=== PATIENT | female | born 1980 | race African-American/Black ===

== ENCOUNTER 2017-07-22 12:31 | Emergency (ER) | payer OTHER ==
[~2017-07-22] VITALS: Ht 167.6 cm; Wt 78.4 kg
[~2017-07-22 12:31] MED LIST: NORCO 5/3251 TABLET PO; PEN-VEE K,VEET500 MG PO
[2017-07-22 14:43] LABS: HEMATOCRIT 34.6 % (36.0-46.0); MCH 30.1 PG (29.0-34.0); MCHC 32.9 G/DL (30.0-36.0); MCV 91.3 FL (83-99); MEAN PLAT.VOLUME 9.1 uM^3 (9.5-12.4); PLATELET COUNT 319 K/uL (156-360); RBC DIS.WIDTH-CV 12.7 % (11.8-14.6); RBC DIS.WIDTH-SD 42.5 % (39-53); RED BLOOD COUNT 3.79 M/uL (3.80-5.20); WHITE BLOOD COUNT 5.7 K/uL (4.1-10.2)
[2017-07-22 14:51] LABS: CHLORIDE 106 mEq/L (99-109); POTASSIUM 3.7 mEq/L (3.7-5.4); SODIUM 139 mEq/L (136-147)
[2017-07-22 14:53] LABS: GLUCOSE 102 mg/dL (70-99)
[2017-07-22 14:54] LABS: ANION GAP 6 MEQ/L (2-14)
[2017-07-22 14:56] LABS: SERUM ETHYL ALCOHOL < 10 mg/dL
[2017-07-22 14:57] LABS: GFR ESTIMATE (CALCULATED) > 59 mL/min/
[2017-07-22 14:58] LABS: UREA NITROGEN (BUN) 9 mg/dL (9-23)
[2017-07-22 15:06] LABS: QUANTITATIVE HCG < 4.0 MIU/ML
[2017-07-22 17:14] VITALS: BP 135/71
== END 2017-07-22 17:15 | disposition home or self-care (01) ==
LOC: EME 12:31
DX: F41.9 Anxiety disorder, unspecified (principal); F32.9 Major depressive disorder, single episode, unspecified; F43.23 Adjustment disorder with mixed anxiety and depressed mood; F43.10 Post-traumatic stress disorder, unspecified; Z88.6 Allergy status to analgesic agent
CPT/HCPCS: 80048; 84702; 85027; 90839; 99281; 99283; G0480